=== PATIENT | female | born 1990 | race Caucasian/White ===

== ENCOUNTER 2016-07-31 14:00 | Emergency (ER) | payer BC ==
[~2016-07-31] VITALS: Ht 152.4 cm; Wt 77.1 kg
[~2016-07-31 14:00] MED LIST: ALBU8.5H INH; FLUO40CA7 PO; MULT-933 PO; OXYC1TAB8 PO
[2016-07-31 14:02] VITALS: Ht 152.4 cm; Wt 77.1 kg
--- OUTSIDE RECORDS SUMMARY | 2016-07-31 14:04 | XMS REPORT | Summary of Care ---
Author Author Allie Burkett, Bridget Organization Unknown Address [address], [place] [id number] Phone Unavailable Care Team Providers Care Electronic Funds Transfer Coordinator Name Role Phone Bridget Velez Unavailable Unavailable Steve Kingston M.D. Unavailable Unavailable Dasia Styles Unavailable Unavailable Unavailable Unavailable Functional Status Name Dates Details Functional status health issues are not documented Status: Name Dates Details Cognitive status health issues are not documented Status: Problems Name Dates Details Nausea (787.02, R11.0) Status: Active Medications Name Dates Details Sprintec 28 0.25-35 MG-MCG Oral Tablet TAKE 1 TABLET DAILY DIRECTED. * Start 04-Jul-2016 Active Albuterol Sulfate (2.5 MG/3ML) 0.083% Inhalation Nebulization Solution USE 1 UNIT DOSE IN NEBULIZER EVERY 4 TO 6 HOURS NEEDED. * Quantity: 1 Refills: 0 * Start 04-Jul-2016 Active 3 ML Plas Cont (60 Plas Conts) Percocet 5-325 MG Oral Tablet TAKE 1 TABLET EVERY 4 HOURS NEEDED FOR PAIN. * Refills: 0 * Start 04-Jul-2016 Active Fioricet 50-300-40 MG Oral Capsule Take as directed * Refills: 0 * Start 04-Jul-2016 Active Ondansetron HCl - 4 MG Oral Tablet TAKE 1 TABLET Every 6 hours PRN for nausea * Quantity: 20 Refills: 0 Steve Kingston M.D. * Start 04-Jul-2016 Active Allergies and Adverse Reactions Name Dates Details Augmentin (Allergy) Status: Active BuSpar (Allergy) Status: Active Clindamycin HCl CAPS (Allergy) Status: Active Wellbutrin (Allergy) Status: Active Procedures Procedure Dates Details History of Adenoidectomy History of Sinus Surgery History of Oral Surgery Tooth Extraction [place] Tooth Procedures not documented Immunization Name Dates Details Immunizations not documented Family History Name Dates Details Family history of liver cancer (V16.0, Z80.0) Status: Active Name Dates Details Family history of anemia (V18.2, Z83.2) Status: Active Family history of Bipolar disorder (296.80, F31.9) Status: Active Social History Name Dates Details - Status: Name Dates Details Current every day smoker Vital Signs Date Test Result Details 04-Jul-2016 11:11 Temperature 98.1 f Status: Comments: Method: Heart Rate 81 /min Status: Comments: Location: ; Physical Findings 16 Status: Comments: Respiration Height 60 in Status: Weight 167 lb Status: Physical Findings 99 Status: Comments: O2 Saturation Body Mass Index Calculated 32.62 kg/m2 Status: Body Surface Area Calculated 1.73 m2 Status: Results Date Description Value Details Results not documented Plan of Care Name Dates Details Planned Observations Planned Goals not documented Planned Encounters Appointment; Provider: Steve Kingston M.D. On 30-Jul-2016 11:15 Instructions Name Dates Details Instructions not documented Encounters Appointment; Steve Kingston M.D. Encounter Diagnosis: Problem not documented On 04-Jul-2016 10:45
--- OUTSIDE RECORDS SUMMARY | 2016-07-31 14:04 | XMS REPORT | Continuity of Care Document ---
Author Author [facility] Organization [facility] Address Unknown Phone Unavailable Support Name Relationship Address Phone DOROTHEA PRUITT MD Caregiver [address] [place] [address] Unavailable BETO SHEPPARD MD Caregiver [address] [address] Unavailable CHRIS REYES Next Of Kin [address], [place] [id number] Insurance Providers Guarantor EricTorreyjudith Address [address] [place] [address] CP Email [email or web address] [facility] [place] Policy Number [id number] Subscriber's Name Prabhakar Ryees Relationship 19 Child Group Number [id number] Advance Directives Directive Response Recorded Date/Time Advanced Directives Type None 06/24/16 8:55pm Chief Complaint and Reason for Visit Chief Complaint Neck Pain Reason for Visit Cervical lymphadenopathy Problems Active Problems Medical Problem Onset Date Status Acute bronchitis Unknown Acute Asthma exacerbation Unknown Acute Exposure to blood or body fluid Unknown Acute Medication reaction Unknown Acute Medication reaction Unknown Acute Past Problems Medical Problem Onset Date Cervical lymphadenopathy Unknown Sensation of swollen throat Unknown Medications Current Home Medications Medication Dose Units Route Directions Days Qty Instructions Start Date Albuterol Sulfate (Proair Hfa 90 Mcg/Actuation) 8.5 Gm Hfa.aer.ad 1 Puff Inhalation Every 4 Hours as needed for Shortness Of Air 02/13/16 Fluoxetine Hcl (Prozac) 40 Mg Capsule 60 Mg Oral Daily 02/13/16 Multivitamin (Multi-Day Vitamins) 1 Each Tablet 1 Tab Oral Daily 02/13/16 Oxycodone Hcl/Acetaminophen (Percocet 5-325 Mg Tablet) 5-325 Tablet 1 Tab Oral Four Times Daily for Pain 30 Tablet Take 1 tablet, by mouth, 4 times a day. 06/24/16 Past Home Medications Medication Directions Ordered Status Acetaminophen With Codeine (Tylenol With Codeine #3 Tablet) 300-30 Tablet, 1 Tab Oral Every 4 Hours as needed for Pain 02/13/16 Discontinued Albuterol 17 Gm Aerosol, 17 Gm Inhalation As Needed 05/24/09 Discontinued Buspirone Hcl 15 Mg Tablet, 7.5 Mg Oral Daily 02/13/16 Discontinued Meloxicam Unknown Strength Tablet, 1 Tab Oral Daily as needed for Prn Orders 02/13/16 Discontinued Multivitamins (Multivitamin) 1 Tab Tablet, 1 Tab Oral Daily 05/24/09 Discontinued Social History Social History Problem Response Recorded Date/Time Onset Date Status Hx Substance Use No 06/24/2016 10:04pm Not Applicable Not Applicable Hx Alcohol Use Y RARE 06/24/2016 10:04pm Not Applicable Not Applicable Has the pt used tobacco in the last 12 months No 01/11/2013 4:28pm Not Applicable Not Applicable Tobacco Usage smoke 12/14/2013 7:41am Not Applicable Not Applicable Query Response Start Date Stop Date Smoking Status Never smoker Hospital Discharge Instructions No hospital discharge instructions. Plan of Care Discharge Date 06/24/16 11:04pm Disposition 01 DISCHARGED HOME, SELF-CARE Condition at Discharge Improved Instructions/Education Provided Lymphadenopathy (ED) Prescriptions See Medication Section Referrals BETO SHEPPARD MD Address: [address] [place] [address] [place] [address] Additional Instructions/Education Continue Augmentin as directed Take ibuprofen 600 mg 4 times daily and/or Tylenol 1000 g 4 times daily as needed for pain and fever Symptoms should began to improve in the next 48 hours Care Plan and Goals Physician Care Plan Problem: Right high cervical lymphadenopathy Goal: Follow up with primary care provider Instructions: Take medications and follow care plan as discussed/written Take ibuprofen 600 mg 3 times daily for the next week, then as needed for pain May take off the next couple of days from gym class/sports, but you may do any activities a feel able to do. Use warm pack or heating pad as needed If not improving in the next 3 days, see your primary doctor Functional Status No functional status results. Allergies, Adverse Reactions, Alerts Allergen Type Severity Reaction Status Last Updated miconazole nitrate Allergy Mild RASH Active 02/13/16 Latex Allergy Intermediate blisters Active 02/13/16 Lactose Allergy Mild ABDOMINAL DISTENSION Active 02/13/16 Bupropion Allergy Mild SWELLING OF THROAT Active 02/13/16 Gluten Allergy Mild ABDOMINAL DISTENSION Active 02/13/16 Latex Allergy Unknown Active 07/18/15 Immunizations Query Response on File Recorded Date/Time Hx Influenza Vaccination No 03/10/14 2:38pm Hx Pneumococcal Vaccination No 03/10/14 2:38pm Hx Influenza Vaccination No 03/10/14 2:38pm Influenza Vaccine Hx 2016 06/24/16 10:04pm Tdap Vaccine Hx "1 YEAR AGO AT [facility]" 05/17/15 12:35pm Vital Signs Acute Vital Signs Vital Response Date/Time Temperature (Fahrenheit) 99.0 deg F (96.8 - 99.1) 06/24/2016 8:55pm Temperature (Calculated Celsius) 37.92907 degrees C (36.0 - 37.3) 06/24/2016 8:55pm Pulse Rate (adult) 75 bpm (60 - 100) 06/24/2016 11:04pm Respiratory Rate 18 breaths/min (10 - 20) 06/24/2016 11:04pm O2 Sat by Pulse Oximetry 100 % (90 - 100) 06/24/2016 11:04pm Blood Pressure 126/79 mm Hg 06/24/2016 11:04pm Height (Feet) 5 feet 06/24/2016 8:55pm Height (Inches) 0 inches 06/24/2016 8:55pm Weight (Kilograms) 76.700 kg 06/24/2016 8:55pm Body Mass Index (BMI) 33.0 06/24/2016 8:55pm Results Laboratory Results Test Name Result Units Flags Reference Collection Date/Time Result Date/ Time Comments White Blood Count 6.7 T/MM3 4.5-11.0 06/24/2016 9:02pm 06/24/2016 9: 36pm Red Blood Count 4.46 M/MM3 4.00-5.20 06/24/2016 9:02pm 06/24/2016 9: 36pm Hemoglobin 14.4 GM/DL 12-16 06/24/2016 9:02pm 06/24/2016 9:36pm Hematocrit 42.1 % 36-46 06/24/2016 9:02pm 06/24/2016 9:36pm Mean Corpuscular Volume 94.4 UM3 80-100 06/24/2016 9:02pm 06/24/2016 9: 36pm Mean Corpuscular Hemoglobin 32.3 UUG 26-34 06/24/2016 9:02pm 2016 9:36pm Mean Corpuscular Hemoglobin Concent 34.2 GM/DL 31-37 06/24/2016 9:02pm 06/24/2016 9:36pm RDW Standard Deviation 41.3 FL 36.9-50.2 06/24/2016 9:02pm 06/24/2016 9 :36pm Platelet Count 284 T/MM3 130-400 06/24/2016 9:02pm 06/24/2016 9:36pm Mean Platelet Volume 9.4 UM3 9.4-12.4 06/24/2016 9:02pm 06/24/2016 9: 36pm Neutrophils (%) (Auto) 76.9 % H 33-66 06/24/2016 9:02pm 06/24/2016 9: 36pm Lymphocytes (%) (Auto) 12.9 % L 23-45 06/24/2016 9:02pm 06/24/2016 9: 36pm Monocytes (%) (Auto) 7.6 % 0-9.0 06/24/2016 9:02pm 06/24/2016 9:36pm Eosinophils (%) (Auto) 2.2 % 0-4 06/24/2016 9:02pm 06/24/2016 9:36pm Basophils (%) (Auto) 0.1 % 0-2 06/24/2016 9:02pm 06/24/2016 9:36pm Immature Granulocyte % (Auto) 0.3 % 0.0-0.5 06/24/2016 9:02pm 2016 9:36pm Absolute Neutrophils (auto) 5.2 T/MM3 1.8-7.7 06/24/2016 9:02pm 2016 9:36pm Absolute Lymphocytes (auto) 0.9 T/MM3 L 1-4.8 06/24/2016 9:02pm 2016 9:36pm Absolute Monocytes (auto) 0.5 T/MM3 0-0.8 06/24/2016 9:02pm 06/24/2016 9:36pm Absolute Eosinophils (auto) 0.2 T/MM3 0-0.5 06/24/2016 9:02pm 2016 9:36pm Absolute Basophils (auto) 0.0 T/MM3 0-0.2 06/24/2016 9:02pm 06/24/2016 9:36pm Absolute Immature Granulocyte (auto 0.02 T/MM3 0.00-0.03 06/24/2016 9: 02pm 06/24/2016 9:36pm Icterus Index < 2 0-7 06/24/2016 9:02pm 06/24/2016 9:19pm Chemistry Specimen Hemolysis < 15 0-25 06/24/2016 9:02pm 06/24/2016 9 :19pm 0-25: Specimen Exhibited No Hemolysis. Turbidity < 20 0-20 06/24/2016 9:02pm 06/24/2016 9:19pm Sodium Level 140 MEQ/L 134-144 06/24/2016 9:02pm 06/24/2016 9:19pm Potassium Level 3.9 MEQ/L 3.6-5 06/24/2016 9:02pm 06/24/2016 9:19pm Chloride Level 103 MEQ/L 98-107 06/24/2016 9:02pm 06/24/2016 9:19pm Carbon Dioxide Level 26 MEQ/L 22-30 06/24/2016 9:02pm 06/24/2016 9: 19pm Anion Gap 11 MEQ/L 5-15 06/24/2016 9:02pm 06/24/2016 9:19pm Blood Urea Nitrogen 10.0 MG/DL 7-17 06/24/2016 9:02pm 06/24/2016 9: 19pm Creatinine 0.8 MG/DL 0.7-1.2 06/24/2016 9:02pm 06/24/2016 9:19pm BUN/Creatinine Ratio 13 RATIO 6-06/24/2016 9:02pm 06/24/2016 9:19pm Glomerular Filtration Rate Calc 89 06/24/2016 9:02pm 06/24/2016 9: 19pm Glucose Level 104 MG/DL 65-110 06/24/2016 9:02pm 06/24/2016 9:19pm Calculated Osmolality 268 MOSM/KG 261-280 06/24/2016 9:02pm 06/24/2016 9:19pm Calcium Level 9.6 MG/DL 8.4-10.2 06/24/2016 9:02pm 06/24/2016 9:19pm Total Bilirubin 0.50 MG/DL 0.20-1.30 06/24/2016 9:02pm 06/24/2016 9: 19pm Alkaline Phosphatase 96 U/L 38-126 06/24/2016 9:02pm 06/24/2016 9:19pm Total Protein 7.3 G/DL 6.3-8.2 06/24/2016 9:02pm 06/24/2016 9:19pm Albumin 4.3 G/DL 3.5-5.0 06/24/2016 9:02pm 06/24/2016 9:19pm Globulin 3.0 G/DL 2.4-3.6 06/24/2016 9:02pm 06/24/2016 9:19pm Albumin/Globulin Ratio 1.4 RATIO 1.1-2.2 06/24/2016 9:02pm 06/24/2016 9 :19pm Aspartate Amino Transf (AST/SGOT) 53 U/L H 14-36 06/24/2016 9:02pm 06/24 9:19pm Alanine Aminotransferase (ALT/SGPT) 76 U/L H 9-52 06/24/2016 9:02pm 9:19pm Procedures No known history of procedures. Encounters Encounter Location Arrival/Admit Date Discharge/Depart Date Attending Provider Departed Emergency Room [facility] 06/24/16 8:42pm 06/24/16 11: 04pm DOROTHEA PRUITT MD Registered Referred [facility] 06/24/16 3:45pm BETO SHEPPARD MD Recent Diagnosis
--- OUTSIDE RECORDS SUMMARY | 2016-07-31 14:04 | XMS REPORT | Summary of Care ---
Author Author Steve Kignston M.D. Organization Unknown Address Unknown Phone Unavailable Care Team Providers Care Brick Loader Name Role Phone Steve Kingston M.D. Unavailable Unavailable Dasia Styles [...] Surgery History of Oral Surgery Tooth Extraction [place] Tooth Procedures not documented Immunization Name Dates [...] Provider: Steve Kingston M.D. On 30-Jul-2016 11:15 Interventions Provided Medication Changes* Ondansetron HCl - 4 MG Oral Tablet - Start Instructions Name Dates Details Instructions not documented Encounters Appointment; Steve Kingston M.D. Encounter Diagnosis: Problem not documented On 04-Jul-2016 10:45
--- OUTSIDE RECORDS SUMMARY | 2016-07-31 14:04 | XMS REPORT | Continuity of Care Document ---
Author Author [facility] Organization [facility] Address Unknown Phone Unavailable Support Name Relationship Address Phone GEORGES OVERTON MD Caregiver [address] [place] [address] ZORAIDA NOVAK MD Caregiver [address] [place] [phone] VLAD WATTERS MD Caregiver [address] [place] [address] [place] [address] CHRIS REYES Next Of Kin [address] [place] [address] Problems Medical Problems Problem Onset Date Status Asthma exacerbation Unknown Active Acute bronchitis Unknown Active Medication reaction Unknown Active Medications Medication Dose Route Sig Days/Qty Instructions Order Date Discontinued Date Status Albuterol 17 Gm IH NEEDED 05/24/09 11/21/10 Discontinued Multivitamins 1 Tab PO DAILY 05/24/09 01/28/12 Discontinued Albuterol Sulfate 2 Puff INH Q4H PRN ASTHMA 1 Qty 12/14/13 Active [Implanon ] 68 Mg IL 03/10/14 Active Cetirizine HCl 1 Cap PO DAILY 3 Days 03/10/14 Active Ranitidine HCl 150 Mg PO TWICE A DAY 3 Days Take 1 tablet, by mouth, 2 times a day. 03/10/14 Active Social History Social History Problem Response Recorded Date/Time Smoking Status Current every day smoker 03/10/2014 2:38pm When did patient START smoking? AGE 21 03/10/2014 2:38pm Hx Substance Use No 03/10/2014 2:38pm Hx Alcohol Use Y RARE 03/10/2014 2:38pm Has the pt used tobacco in the last 12 months No 01/11/2013 4:28pm Query Response Start Date Stop Date Smoking Status Current some day smoker Hospital Discharge Instructions Discharge Medications/Orders are not finalized. Discharge Medications/Orders are not finalized. Reason for Hospitalization: Left knee DJD I was in the hospital because (patient own words): LEFT KNEE REPLACEMENT Discharge Diet: Regular Discharge Activity: WBAT Follow Up Appointments: Follow up appointment with Dr Dalal on 03-23-14 @10:00am for staple removal. CMP & CBC 1 week after d/c, results to Dr. Grimm. Appt with Dr. Salvador Sunday March 23, 2014 at 1:30pm Condition at time of discharge: Good Good Take all medications as instructed. If you have any questions regarding your medications, please contact our office at [phone]. Condition at time of discharge: Fair or excessive foul smelling drainage. 3. If the office is closed, call [facility] at [phone] and have your Surgeon paged. Condition at time of discharge: Good Plan of Care Prescriptions See Medications Section Functional Status Query Response Date Recorded Physical Hygiene Self March 10, 2014 2:38pm Disabilities None March 10, 2014 2:38pm Devices Used None March 10, 2014 2:38pm Dressing Self March 10, 2014 2:38pm Ambulation Self March 10, 2014 2:38pm Diet Self March 10, 2014 2:38pm Mental Status Alert March 10, 2014 3:55pm Disabilities None March 10, 2014 2:38pm Devices Used None March 10, 2014 2:38pm Physical Hygiene Self March 10, 2014 2:38pm Dressing Self March 10, 2014 2:38pm Ambulation Self March 10, 2014 2:38pm Diet Self March 10, 2014 2:38pm Allergies, Adverse Reactions, Alerts Allergen Type Severity Reaction Status Last Updated miconazole nitrate Allergy Mild RASH Active 12/14/13 Lactose Allergy Mild ABDOMINAL DISTENSION Active 12/14/13 Gluten Allergy Mild ABDOMINAL DISTENSION Active 12/14/13 Latex Allergy Unknown Active 12/14/13 Immunizations Name Given Type Hx Influenza Vaccination No Historical Hx Pneumococcal Vaccination No Historical Hx Influenza Vaccination No Historical Vital Signs Acute Vital Signs Vital Response Date/Time Temperature (Fahrenheit) 97.8 deg F (96.8 - 99.1) Temperature (Calculated Celsius) 36.31113 degrees C (36.0 - 37.3) Pulse Rate (adult) 77 bpm (60 - 100) Respiratory Rate 16 breaths/min (10 - 20) O2 Sat by Pulse Oximetry 96 % (90 - 100) Blood Pressure 105/64 mm Hg Height 5 ft 0 in Weight 149 lb Body Mass Index 29.0 kg/m^2 Results Test Source Date Result Interp. Ref. Range Comments Alanine Aminotransferase (ALT/SGPT) October 14, 2013 6:13pm 18 U/L N 9-52 Albumin October 14, 2013 6:13pm 4.2 G/DL N 3.5-5.0 Albumin/Globulin Ratio October 14, 2013 6:13pm 1.6 RATIO N 1.1-2.2 Alkaline Phosphatase October 14, 2013 6:13pm 87 U/L N 38-126 Amylase Level January 28, 2012 10:10pm 76 U/L N 30-110 Anion Gap October 14, 2013 6:13pm 11 MEQ/L N 5-15 Aspartate Amino Transf (AST/SGOT) October 14, 2013 6:13pm 23 U/L N 14-36 BUN/Creatinine Ratio October 14, 2013 6:13pm 28 RATIO H 6-26 Basophils # (Auto) October 14, 2013 6:13pm 0.0 T/MM3 N 0-0.2 Basophils (%) (Auto) October 14, 2013 6:13pm 0.3 % N 0-2 Blood Urea Nitrogen October 14, 2013 6:13pm 14.0 MG/DL N 7-17 Calcium Level October 14, 2013 6:13pm 9.1 MG/DL N 8.4-10.2 Calculated Osmolality October 14, 2013 6:13pm 271 MOSM/KG N 261-280 Carbon Dioxide Level October 14, 2013 6:13pm 23 MEQ/L N 22-30 Chloride Level October 14, 2013 6:13pm 107 MEQ/L N 98-107 Creatinine October 14, 2013 6:13pm 0.5 MG/DL L 0.7-1.2 Eosinophils # (Auto) October 14, 2013 6:13pm 0.1 T/MM3 N 0-0.5 Eosinophils (%) (Auto) October 14, 2013 6:13pm 2.2 % N 0-4 Erythrocyte Sedimentation Rate October 19, 2008 5:15pm 9 MM/HR - Globulin October 14, 2013 6:13pm 2.7 G/DL N 2.4-3.6 Glucose Level October 14, 2013 6:13pm 85 MG/DL N 65-110 Helicobacter pylori IgG Antibody October 19, 2008 5:15pm Sent out - Hematocrit October 14, 2013 6:13pm 40.0 % N 36-46 Hemoglobin October 14, 2013 6:13pm 13.8 GM/DL N 12-16 Human Chorionic Gonadotropin, Qual February 22, 2010 3:00pm Negative - Influenza Type A Antigen February 22, 2010 3:00pm Negative - Influenza Type B Antigen February 22, 2010 3:00pm Negative - Lipase October 14, 2013 6:13pm 61 U/L N 23-300 Lymphocytes # (Auto) October 14, 2013 6:13pm 2.4 T/MM3 N 1-4.8 Lymphocytes (%) (Auto) October 14, 2013 6:13pm 40.2 % N 23-45 Mean Corpuscular Hemoglobin October 14, 2013 6:13pm 30.2 UUG N 26-34 Mean Corpuscular Hemoglobin Concent October 14, 2013 6:13pm 34.5 GM/DL N 31 -37 Mean Corpuscular Volume October 14, 2013 6:13pm 87.5 UM3 N 80-100 Mean Platelet Volume October 14, 2013 6:13pm 9.2 UM3 L 9.4-12.4 Monocytes # (Auto) October 14, 2013 6:13pm 0.5 T/MM3 N 0-0.8 Monocytes (%) (Auto) October 14, 2013 6:13pm 8.1 % N 0-9.0 Monoscreen February 22, 2010 3:00pm Negative - Neutrophils # (Auto) October 14, 2013 6:13pm 2.9 T/MM3 N 1.8-7.7 Neutrophils (%) (Auto) October 14, 2013 6:13pm 49.2 % N 33-66 Platelet Count October 14, 2013 6:13pm 289 T/MM3 N 130-400 Potassium Level October 14, 2013 6:13pm 4.1 MEQ/L N 3.6-5 RDW Standard Deviation October 14, 2013 6:13pm 39.0 FL N 36.9-50.2 Red Blood Count October 14, 2013 6:13pm 4.57 M/MM3 N 4.00-5.20 Sodium Level October 14, 2013 6:13pm 141 MEQ/L N 134-144 Total Bilirubin October 14, 2013 6:13pm < 0.10 MG/DL L 0.20-1.30 Total Protein October 14, 2013 6:13pm 6.9 G/DL N 6.3-8.2 Urine Amorphous Phosphates January 28, 2012 9:30pm Many - Has specimen been collected/obtained? Y Urine Amorphous Urates October 19, 2008 5:27pm Few - Urine Bacteria January 28, 2012 9:30pm Trace H - Has specimen been collected/obtained? Y Urine Bilirubin January 28, 2012 9:30pm Negative - Has specimen been collected/obtained? Y Urine Blood January 28, 2012 9:30pm Negative - Has specimen been collected/obtained? Y Urine Collection Type January 28, 2012 9:30pm Voided - Has specimen been collected/obtained? Y Urine Color January 28, 2012 9:30pm Yellow - Has specimen been collected/obtained? Y Urine Glucose (UA) January 28, 2012 9:30pm Negative - Has specimen been collected/obtained? Y Urine Ketones January 28, 2012 9:30pm Negative - Has specimen been collected/obtained? Y Urine Leukocyte Esterase January 28, 2012 9:30pm Negative - Has specimen been collected/obtained? Y Urine Nitrite January 28, 2012 9:30pm Negative - Has specimen been collected/obtained? Y Urine Test January 28, 2012 9:30pm Negative - Has specimen been collected/obtained? Y Urine Protein January 28, 2012 9:30pm Negative - Has specimen been collected/obtained? Y Urine RBC January 28, 2012 9:30pm None seen /HPF - Has specimen been collected/obtained? Y Urine Specific [place] January 28, 2012 9:30pm 1.015 - Has specimen been collected/obtained? Y Urine Squamous Epithelial Cells January 28, 2012 9:30pm Many - Has specimen been collected/obtained? Y Urine Turbidity January 28, 2012 9:30pm Slt cldy - Has specimen been collected/obtained? Y Urine Urobilinogen January 28, 2012 9:30pm Normal EU/DL - Has specimen been collected/obtained? Y Urine WBC January 28, 2012 9:30pm None seen /HPF - Has specimen been collected/obtained? Y Urine pH January 28, 2012 9:30pm 9.0 H - Has specimen been collected/ obtained? Y White Blood Count October 14, 2013 6:13pm 5.9 T/MM3 N 4.5-11.0 Chemistry Specimen Hemolysis October 14, 2013 6:13pm < 15 0-25 0-25: No Hemolysis.26-70: Slight Hemolysis - can falsely elevate K and Urine Protein. 71-285: Moderate Hemolysis - can falsely elevate K, Troponin I, CA 19-9, PTH, CSF GLucose, and Urine Protein, and can falsely decrease Phenytoin. 286-999: Gross Hemolysis - can falsely elevate K, Troponin I, CA 19-9, PTH, CSF Glucose, and Urine Protine, and can falsely decrease Phenytoin. Recommend specimen recollection. Lab Scanned Report November 18, 2013 4:04pm REFERENCE LAB [id number] - Chlamydia trachomatis Amplified DNA January 28, 2012 10:35pm Ref lab rpt scanned - --- 01/30/12 1610 ---CHLAMDNA previously reported as: SENT OUT Turbidity October 14, 2013 6:13pm < 20 0-20 Glomerular Filtration Rate Calc October 14, 2013 6:13pm 156 - Immature Granulocyte # (Auto) October 14, 2013 6:13pm 0.00 T/MM3 N 0.00- 0.03 Immature Granulocyte % (Auto) October 14, 2013 6:13pm 0.0 % N 0.0-0.5 Beta HCG, Quantitative November 02, 2012 5:00pm 13.08 mIU/mL - NON- INDIVIDUALS=0 - 4.83;SAMPLES BETWEEN 4.83 - 25 SHOULD BE RE-TESTED AFTER 48 HOURS IF IS SUSPECTED; GESTATION 1-10 WEEKS: 45-256,380; 11-15 WEEKS: 11,556-265,380; 16-22 WEEKS: 27,023-111,954; 23-40 WEEKS: 24,031-101,566 Icterus Index October 14, 2013 6:13pm < 2 0-7 Membranes Rupture (PAMG-1) November 21, 2010 1:30am Positive - Wet Prep Vagina April 16, 2013 1:40pm Urine Culture Urine, Voided-Not Cc-Midstream December 10, 2012 12:00am Mixed Jennifer Prob. Contaminants Name: BENSON REYES Unit #: [id number] : [id number] Sex: F Loc / Svc: LATIA DOS: 01/24/14 Signed Report #: [id number] DIAGNOSTIC IMAGING REPORT TYPE OF EXAM: NM HEPATOBIL/EF Dictated By: PANTERA COLLIER MD INDICATION: ITS.REASON: 789.01 RUQ ABDOMEN PAIN NM HEPATOBIL/EF: Comparison: None Technique: 6.6 mCi of Tc-99m mebrofenin was injected intravenously. At approximately 55 minutes following this administration, 8 oz. of Boost Plus was administered orally. Anterior planar images were obtained and a time/activity curve was calculated. FINDINGS: Radiotracer uptake is seen homogenously within the liver. There is normal clearance of radiotracer from the blood pool. The common bile duct is visualized at approximately 6 minutes. The gallbladder is visualized by 8 minutes, and radiotracer is excreted into the small bowel. There is no evidence of radiotracer outside the biliary or gastrointestinal tract. The gallbladder ejection fraction is normal at 81%. IMPRESSION: 1. Gallbladder visualization excluding acute cholecystitis. 2. Normal gallbladder ejection fraction of 81%, excluding biliary dyskinesia. . Procedures No known history of procedures. Encounters Encounter Location Date/Time Departed Emergency Room [facility] 03/10/14 2:28pm Registered Clinic [facility] 01/24/14 6:34am Departed Emergency Room [facility] 12/14/13 6:45am Recent Diagnosis
--- OUTSIDE RECORDS SUMMARY | 2016-07-31 14:04 | XMS REPORT | Summary of Care ---
Author Author Steve Kingston M.D. Organization Unknown Address Unknown Phone Unavailable Care Team Providers Care Comsec Manager Name Role Phone Steve Kingston M.D. Unavailable [...] Surgery History of Oral Surgery Tooth Extraction Ruffin Tooth Procedures not documented Immunization Name Dates [...]
--- NOTE | 2016-07-31 14:22 | NUR ---
DR Ruperto LAIRD IN
--- OUTSIDE RECORDS SUMMARY | 2016-07-31 14:22 | XMS REPORT | Continuity of Care Document ---
Author Author [facility] Organization [facility] Address Unknown Phone Unavailable Support Name Relationship Address Phone GEORGES OVERTON MD Caregiver [address] [place] [address] ZORAIDA NOVAK MD Caregiver [address] [phone] VLAD WATTERS MD Caregiver [address] [place] [address] [place] [address] CHRIS REYES Next Of Kin [address] [place] [address] Problems Medical Problems Problem Onset [...] your medications, please contact our office at [phone]. Condition at time of discharge: Fair or excessive foul smelling drainage. 3. If the office is closed, call [facility] at [phone] and have your Surgeon paged. Condition at [...] F (96.8 - 99.1) Temperature (Calculated Celsius) 36.66122 degrees C (36.0 - 37.3) Pulse Rate [...] Has specimen been collected/obtained? Y Urine Specific [place] January 28, 2012 9:30pm 1.015 - Has [...] Report November 18, 2013 4:04pm REFERENCE LAB [id number] - Chlamydia trachomatis Amplified DNA January 28, [...] Prob. Contaminants Name: BENSON REYES Unit #: [id number] : [id number] Sex: F Loc / Svc: LATIA DOS: 01/24/14 Signed Report #: [id number] DIAGNOSTIC IMAGING REPORT TYPE OF EXAM: NM [...] Encounters Encounter Location Date/Time Departed Emergency Room [facility] 03/10/14 2:28pm Registered Clinic [facility] 01/24/14 6:34am Departed Emergency Room [facility] 12/14/13 6:45am Recent Diagnosis
[2016-07-31] MEDS ORDERED: ONDA-55 PO (14:26)
[2016-07-31] MEDS ORDERED: MELO-267 PO (14:26)
[2016-07-31] MEDS ORDERED: ACET1TAB25 PO (14:26)
[2016-07-31] MEDS ORDERED: BUTA-253 PO (14:26)
[2016-07-31] MEDS ORDERED: TIZA2TAB4 PO (14:26)
[2016-07-31] MEDS ORDERED: ORTHO EVRA PATCH TD (14:30)
--- NOTE | 2016-07-31 14:34 | ERPDOC ---
Departure Disposition Decision Date: Jul 31, 2016 Disposition Decision Time: 16:45 Disposition: 01 DISCHARGED HOME, SELF-CARE Impression Impression Impression: Primary Impression: Cervical lymphadenopathy Additional Impressions: Celiac disease Soft tissue swelling Severity: Moderate Condition: Stable Seen By: Physician only Referrals: BETO SHEPPARD MD (Family) 1 Week Patient Instructions: Celiac Disease (ED), Food Allergy (ED), Lymphadenopathy ( ED) Problems/Meds/Labs Reviewed?: Yes Medications reviewed and manag: Yes Additional Instructions: Watch your diet carefully over the next few days especially. Consider getting referral to credit analyst for food allergy testing and/or elimination diet. Push fluids. Take dosepak as prescribed to help with swelling in neck. Follow up with your PCP next week. Follow up care ordered?: Yes Mental Status: Alert, Oriented Scripts Ondansetron (Ondansetron Odt) 4 Mg Tab.rapdis 1 TAB PO Q6-8HPRN Y for NAUSEA, #16 TAB 0 Refills Prov: YONI LAIRD MD 07/31/16 Methylprednisolone (Methylprednisolone) 4 Mg Tablet 1 PACK PO DAILY, #1 PACK 0 Refills Take pills in tapering fashion as directed. Prov: YONI LAIRD MD 07/31/16 HPI General Chief Complaint: Throat Pain/Injury Stated Complaint: UNABLE TO SWALLOW, SWOLLEN THROAT Time Seen by Provider: 14:17 Source: patient, RN notes reviewed, old records Exam Limitations: no limitations HPI Dental Initial Comments This patient comes in for recurrent throat swelling. She has had some swelling in her lymph glands in her neck for about a month. She had a CT that showed mild lymphadenopathy and was told to wait and see if it went down. Then she was referred to a cancer doctor who told her that the swelling was probably viral and to wait and see if it improved. and that it was probably viral. She said that the swelling went down but did not completely go away and that now it is suddenly worse again. She feels like there is a "meatball" in her throat at the base of her tongue in her throat. She is also having a migraine today. She has Celiac disease and she knows that she had some gluten yesterday because she ate out, and she is having increased bloating and cramping in her abdomen as well. Occurred At: home Onset: Gradual Pain Scale: Now: 8/10 Associated Symptoms: trouble swallowing, DENIES: cough, dyspnea, hoarseness, nausea, trouble chewing Allergies: Coded Allergies: Latex, Natural Rubber (Verified Allergy, Intermediate, blisters, 07/31/16) bupropion (Unverified Allergy, Mild, SWELLING OF THROAT, 07/31/16) gluten (Verified Allergy, Mild, ABDOMINAL DISTENSION, 07/31/16) lactose (Verified Allergy, Mild, ABDOMINAL DISTENSION, 07/31/16) miconazole nitrate (Verified Allergy, Mild, RASH, 07/31/16) amoxicillin (Verified Allergy, Unknown, 07/31/16) clavulanic acid (Verified Allergy, Unknown, 07/31/16) clindamycin (Verified Allergy, Unknown, 07/31/16) latex (Verified Allergy, Unknown, 07/31/16) Past History Past Medical History Respiratory: asthma GI: other (Celiac disease) Neurological: migraines Psychological: anxiety, depression Surgical History General: other Family History Family PMH: FOUND: other Vaccines Hx Influenza Vaccination: No Hx Pneumococcal Vaccination: No Social History Smoking Status: Unknown if ever smoked Does patient use chewing tobac: No # of Packs/Tins per Day: 0.5 Second Hand Exposure: No Substance Use Type: does not use Sexuality: male partner Record Review Pertinent history updated: Yes Review of Systems Constitutional Constitutional: appetite decrease, DENIES: chills, dizziness, fever, weakness Eyes General: DENIES: pain Lids/Accessories: DENIES: erythema Vision: DENIES: blurring ENMT Ears: DENIES: pain Hearing: DENIES: hearing loss Balance: DENIES: vertigo Sinuses: DENIES: congestion, rhinorrhea Mouth/Throat: change in swallowing, see HPI, DENIES: sore throat Teeth: DENIES: pain Cardiovascular Cardiac: DENIES: chest pain Rhythm/Rate: DENIES: palpitations Vascular: DENIES: pedal edema, unilateral swelling Pulmonary Respiratory: DENIES: cough, dyspnea, sputum GI Upper Abdomen: food intolerances, see HPI Lower Abdomen: DENIES: blood in stool, constipation, diarrhea General: DENIES: dysuria, hematuria Female: DENIES: vaginal discharge Musculoskeletal General: DENIES: joint pain, pain Integumentary Skin: DENIES: itching, rash Neurological General: DENIES: headache, memory disturbances, seizures, syncope Psychiatric Psychiatric: DENIES: anxiety, depression Endocrine Endocrine: DENIES: heat/cold intolerance Hematologic/Lymphatic Hematologic/Lymphatic: DENIES: anemia, easy bruising Allergic/Immunological Allergic/Immunoligical: DENIES: hives All other Systems All Other Systems: Reviewed and Negative Exam General Vital Signs: Temperature: 98.1, Source: Oral, Heart Rate: 76, Respiratory Rate : 16, BP: 140/77, Pulse Oximetry: 99 Height (Feet): 5 Height (Inches): 0 Fastrak Dental Face: NOT FOUND: bruising, erythema, swelling Jaw: NOT FOUND: asymmetry, trismus Glands: NOT FOUND: L parotid swollen, L submandibular swollen, R parotid swollen, R submandibular swollen Ducts: NOT FOUND: L Stensen's blocked, L Stensen's inflamed, L [place]'s blocked, L Bro's inflamed, R Stensen's blocked, R Stensen's inflamed, R Bro's blocked, R Bro's inflamed Lips: NOT FOUDN: laceration, swelling Gums: moist, pink, NOT FOUND: swelling Tongue: NOT FOUND: swelling Teeth: NOT FOUND: caries, fractures Pharynx: NOT FOUND: erythema, exudate, swelling Tonsils: NOT FOUND: erythema, exudate Neck: L anterior adenopathy, R anterior adenopathy, shotty nodes Skin: NOT FOUND: rash Respiratory (brief) Respiratory Brief: FOUND: clear all rendon, equal bilaterally Abdomen (brief) Abdominal Brief: FOUND: bowel normo active x4, distended (mild), soft Neurologic RN Documented GCS Eye Opening: Verbal: Motor: Total: Differential Diagnoses Considering: Other (food intolerance with allergic reaction causing the swelling, viral illness, other) Progress Results/Orders Orders Procedure Category Date Status Time Iv Lock (Ed Only) EDM 07/31/16 Transmitted 14:34 Cbc W/Auto LAB 07/31/16 Complete Diff-Reflex Manual Cmp - Comprehensive LAB 07/31/[address] Neck W/Contrast CT 07/31/16 Resulted Normal Saline (Normal PHA 07/31/16 Complete Saline Iv) 14:45 Iohexol (Omnipaque) PHA 07/31/16 Complete 15:07 Normal Saline (Ns) PHA 07/31/16 Complete 15:07 Saline Flush (Iv PHA 07/31/16 Complete Flush) 15:07 Methylprednisolone PHA 07/31/16 Complete Sod Succ (Solu-Medrol 15:45 Ketorolac (Toradol) PHA 07/31/16 Complete 15:45 Ondansetron Inj PHA 07/31/16 Complete (Zofran) 16:15 Hydromorphone PHA 07/31/16 Complete (Dilaudid) 16:15 Ondansetron Odt PHA 07/31/16 Complete (Zofran Odt) 17:15 Lab Results Laboratory Tests Test 07/31/16 14:47 White Blood Count 8.1T/MM3 Red Blood Count 4.37M/MM3 Hemoglobin 13.7GM/DL Hematocrit 40.6% Mean Corpuscular Volume 92.9UM3 Mean Corpuscular Hemoglobin 31.4UUG Mean Corpuscular Hemoglobin Concent 33.7GM/DL RDW Standard Deviation 40.2FL Platelet Count 256T/MM3 Mean Platelet Volume 9.3UM3 Immature Granulocyte % (Auto) 0.2% Neutrophils (%) (Auto) 64.6% Lymphocytes (%) (Auto) 26.9% Monocytes (%) (Auto) 6.0% Eosinophils (%) (Auto) 2.1% Basophils (%) (Auto) 0.2% Absolute Immature Granulocyte (auto 0.02T/MM3 Absolute Neutrophils (auto) 5.2T/MM3 Absolute Lymphocytes (auto) 2.2T/MM3 Absolute Monocytes (auto) 0.5T/MM3 Absolute Eosinophils (auto) 0.2T/MM3 Absolute Basophils (auto) 0.0T/MM3 Turbidity < 20 Sodium Level 142MEQ/L Potassium Level 3.9MEQ/L Chloride Level 105MEQ/L Carbon Dioxide Level 24MEQ/L Anion Gap 13MEQ/L Blood Urea Nitrogen 12.0MG/DL Creatinine 0.6MG/DL Glomerular Filtration Rate Calc 124 BUN/Creatinine Ratio 20RATIO Glucose Level 86MG/DL Calculated Osmolality 272MOSM/KG Calcium Level 9.3MG/DL Total Bilirubin 0.50MG/DL Icterus Index < 2 Aspartate Amino Transf (AST/SGOT) 21U/L Alanine Aminotransferase (ALT/SGPT) 27U/L Alkaline Phosphatase 77U/L Total Protein 7.0G/DL Albumin 4.0G/DL Globulin 3.0G/DL Albumin/Globulin Ratio 1.3RATIO Chemistry Specimen Hemolysis < 15 Medications Current ED Medications Sodium Chloride (Normal Saline IV) 1,000 ml @ 0 mls/hr Q0M ONCE IV Last administered on 07/31/16 15:03; Start 07/31/16 at 14:45; Stop 07/31/16 at 14:46; Status DC Iohexol 1 bottle 1 bottle STK-MED ONCE .ROUTE ; Start 07/31/16 at 15:07; Stop 07/31/16 at 15:08; Status DC Sodium Chloride (NS) 100 ml @ As Directed STK-MED ONCE .ROUTE ; Start 07/31/16 at 15:07; Stop 07/31/16 at 15:08; Status DC Sodium Chloride (Iv Flush) 10 ml STK-MED ONCE .ROUTE ; Start 07/31/16 at 15:07; Stop 07/31/16 at 15:08; Status DC Methylprednisolone Sodium Succinate (Solu-Medrol) 125 mg O ONCE IV Last administered on 07/31/16 15:43; Start 07/31/16 at 15:45; Stop 07/31/16 at 15:46; Status DC Ketorolac Tromethamine (Toradol) 30 mg O ONCE IV Last administered on 15:40; Start 07/31/16 at 15:45; Stop 07/31/16 at 15:46; Status DC Ondansetron HCl (Zofran) 4 mg O ONCE IV Last administered on 07/31/16 16:17; Start 07/31/16 at 16:15; Stop 07/31/16 at 16:16; Status DC Hydromorphone HCl (Dilaudid) 1 mg O ONCE IV Last administered on 07/31/16 16: 18; Start 07/31/16 at 16:15; Stop 07/31/16 at 16:16; Status DC Ondansetron HCl (Zofran Odt) 4 mg O ONCE PO Last administered on 07/31/16 17: 19; Start 07/31/16 at 17:15; Stop 07/31/16 at 17:16; Status DC Progress Progress CT shows decrease in node size not increase although patient perceives increased neck swelling -- suspect it is more soft tissue than the nodes. This may be related to her Celiac disease and food intolerances -- she may need to consider food allergy testing. Patient feels better after Solu-medrol -- thinks that she can swallow better and breathe easier. Migraine improved with analgesics. CT Date CT Interpreted for [place]: Jul 31, 2016 CT : CT: Other (softtissue swelling in the neck with small nodes) YONI LAIRD MD Jul 31, 2016 14:33
[2016-07-31] MEDS ORDERED: NORMAL SALINE 1,000 ML IV ONE (14:45)
[2016-07-31 14:58] LABS: BASOPHILS % (AUTO) 0.2 % (0-2); EOSINOPHILS # (AUTO) 0.2 T/MM3 (0-0.5); EOSINOPHILS % (AUTO) 2.1 % (0-4); HCT - HEMATOCRIT 40.6 % (36-46); HGB - HEMOGLOBIN 13.7 GM/DL (12-16); IMMATURE GRANULOCYTE # (AUTO) 0.02 T/MM3 (0.00-0.03); IMMATURE GRANULOCYTE % (AUTO) 0.2 % (0.0-0.5); LYMPHOCYTES # (AUTO) 2.2 T/MM3 (1-4.8); LYMPHOCYTES % (AUTO) 26.9 % (23-45); MEAN CORPUSCULAR HGB 31.4 UUG (26-34); MEAN CORPUSCULAR HGB CONC(MCHC 33.7 GM/DL (31-37); MEAN CORPUSCULAR VOLUME 92.9 UM3 (80-100); MEAN PLATELET VOLUME 9.3 UM3 (9.4-12.4); MONOCYTES # (AUTO) 0.5 T/MM3 (0-0.8); NEUTROPHILS #(AUTO)-ABSOLUTE 5.2 T/MM3 (1.8-7.7); NEUTROPHILS % (AUTO) 64.6 % (33-66); RED BLOOD COUNT 4.37 M/MM3 (4.00-5.20); WBC - WHITE BLOOD COUNT 8.1 T/MM3 (4.5-11.0)
[2016-07-31 15:03] LABS: ALBUMIN/GLOBULIN RATIO 1.3 RATIO (1.1-2.2); ALKALINE PHOSPHATASE 77 U/L (38-126); ALT (SGPT) 27 U/L (9-52); ANION GAP 13 MEQ/L (5-15); AST (SGOT) 21 U/L (14-36); BUN/CREATININE RATIO 20 RATIO (6-26); CALCIUM 9.3 MG/DL (8.4-10.2); CHLORIDE 105 MEQ/L (98-107); CO2 - CARBON DIOXIDE 24 MEQ/L (22-30); CREATININE 0.6 MG/DL (0.7-1.2); GLOMERULAR FILTRATION RATE 124; GLUCOSE 86 MG/DL (65-110); POTASSIUM 3.9 MEQ/L (3.6-5); SODIUM 142 MEQ/L (134-144)
[2016-07-31] MEDS ORDERED: IOHEXOL 300 MG/ML 75ml INJECTION ONE (15:07)
[2016-07-31] MEDS ORDERED: NORMAL SALINE 100 ML ONE (15:07)
[2016-07-31] MEDS ORDERED: SALINE FLUSH 10ml SYRINGE ONE (15:07)
--- NOTE | 2016-07-31 15:10 | NUR ---
TO CT PER CART
--- NOTE | 2016-07-31 15:22 | NUR ---
RETURNED FROM CT
--- NOTE | 2016-07-31 15:35 | NUR ---
PAIN PT REPORTS MORE THROAT DISCOMFORT AFTER LYING FLAT ON CT TABLE. WILL GIVEN PAIN MEDS
--- NOTE | 2016-07-31 15:37 | DI ---
Indication: ITS.REASON: recurrent swelling in neck attention soft tissues see previous CT PROCEDURE: CT NECK W/CONTRAST: Encounter: Initial Comparison: Neck CT dated June 24, 2016 Technique: Axial CT images were performed through the neck with intravenous contrast. Coronal and sagittal two-dimensional reformats Automated Exposure Control and Iterative Reconstruction dose reducing techniques were utilized. Contrast: Omnipaque 300 74 mL Findings: The lung apices are grossly clear. The thyroid gland appears normal. The prior enlarged right submandibular lymph node is smaller on today's exam, now measuring 0.8 cm in short axis compared to 1.2 cm previously. The parotid and submandibular glands appear normal and symmetric. Presumably reactive bilateral cervical level two lymphadenopathy has improved with a borderline 1 cm lymph node remaining on the right that is also decreased in size by 3 to 4 mm from the prior exam. No mucosal based mass lesions appreciated. No rim-enhancing fluid collection or abscess identified. Great vessels appear normal. Bone windows are unremarkable. Impression: Interval improvement in adenopathy, presumably due to improving infection or inflammation. No new or worsening lymphadenopathy seen in the neck. No acute disease process seen. .
[2016-07-31] MEDS ORDERED: KETOROLAC 30mg/ml INJECTION IV ONE (15:45)
[2016-07-31] MEDS ORDERED: HYDROMORPHONE 2mg/ml INJECTION IV ONE (16:15)
[2016-07-31] MEDS ORDERED: ONDANSETRON 4mg/2ml INJECTION IV ONE (16:15)
[2016-07-31] MEDS ORDERED: METH4TAB16 PO (17:02)
[2016-07-31] MEDS ORDERED: ONDANSETRON ODT 4 MG TAB PO ONE (17:15)
[2016-07-31] MEDS ORDERED: ONDA4TAB10 PO (17:17)
[2016-07-31 17:22] VITALS: BP 122/85; PULSE 85; RESP 16; TEMP 98.1; O2SAT 97
--- NOTE | 2016-07-31 17:22 | NUR ---
DISMISSAL PT IS PAINFREE. BECAME NAUSEAOUS. ZOFRAN ODT GIVEN W RX FOR SAME. DISCHARGED AMB
== END 2016-07-31 17:22 | disposition home or self-care (01) ==
LOC: ED 14:00
DX: R59.0 Localized enlarged lymph nodes (principal); M79.89 Other specified soft tissue disorders; K90.0 Celiac disease
CPT/HCPCS: 70491; 80053; 85025; 96361; 96374; 96375; 99284; J1170; J1885; J2405; J2930; J7030; J7050; Q9967